=== PATIENT | male | born 1955 | race Caucasian/White ===

== ENCOUNTER 2017-08-15 05:08 | Day surgery (SDC) | payer BC ==
[2017-08-15] MEDS ORDERED: SODIUM CHLORIDE IVPB ONE (09:00)
[2017-08-15] MEDS ORDERED: DESMOPRESSIN ACETATE IVPB ONE (09:00)
[2017-08-15] MEDS ORDERED: PROPOFOL 20 ML ONE ×2 (11:44→12:07)
[2017-08-15] MEDS ORDERED: MIDAZOLAM HCL 2 MG/2 ML SINGLE DOSE VIAL ONE (11:44)
[2017-08-15] MEDS ORDERED: ROCURONIUM BROMIDE 50 MG/5 ML VIAL ONE (11:50)
[2017-08-15] MEDS ORDERED: ceFAZolin SODIUM 1 GM VIAL IVPB ONE (12:20)
[2017-08-15] MEDS ORDERED: ceFAZolin SODIUM 1 GM VIAL ONE (12:23)
[2017-08-15] MEDS ORDERED: DEXAMETHASONE SOD PHOSPHATE 4 MG/1 ML VIAL ONE (12:23)
[2017-08-15] MEDS ORDERED: GLYCOPYRROLATE 0.2 MG/1 ML VIAL ONE (12:54)
[2017-08-15] MEDS ORDERED: NEOSTIGMINE METHYLSULFATE 0.5 MG/ML - 10 ML MDV ONE (12:54)
[2017-08-15] MEDS ORDERED: ONDANSETRON 4 MG/2 ML VIAL IVPB PRN (13:14)
[2017-08-15] MEDS ORDERED: oxyCODONE HCL 5 MG TABLET PO PRN ×3 (13:14→15:18)
[2017-08-15] MEDS: KETOROLAC TROMETHAMINE 30 MG/1 ML VIAL IVPUSH ONE ×2 (15:20→16:48)
[2017-08-15] MEDS ORDERED: KETOROLAC TROMETHAMINE 30 MG/1 ML VIAL ONE (15:20)
[2017-08-15] MEDS: LACTATED RINGERS SOLUTION 1,000 ML IV SCH (16:57)
[2017-08-16] MEDS: LACTATED RINGERS SOLUTION 1,000 ML IV SCH (00:33)
--- NOTE | 2017-08-16 09:40 | OP ---
DATE OF OPERATION: DATE OF DICTATION: Laparoscopic ventral hernia repair. PREOPERATIVE DIAGNOSIS: Ventral hernia. POSTOPERATIVE DIAGNOSIS: Ventral hernia. SURGEON: Madi Roger MD PRECINCT I [employer]GEANT SURGEON: Ehsan Richard MD ANESTHESIA: General endotracheal anesthesia. IMPLANTS: Implanted a 4.5-inch, circular Ventralight ST mesh with the Echo Positioning System. OPERATIVE NOTE: The patient was brought to the operating room. After confirming, name, date of , and medical record number, he was given DDAVP in the preop holding area. 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 He was then induced and intubated by the anesthesiologist. He received appropriate perioperative antibiotics. He had SCDs for DVT prophylaxis. He was then prepped and draped in the usual sterile fashion. A timeout was then performed. I marked off his left subcostal margin and then made a transverse incision in his left upper quadrant and bluntly dissected down to his anterior sheath. I cauterized through the anterior sheath in a transverse fashion and then I used a Geno clamp to spread the muscle. Then, I grabbed his posterior sheath with Geno clamps and lifted it anteriorly and used Metzenbaum scissors to cut and enter the abdomen sharply. I placed my finger inside the wound, performed a finger sweep and ensured no adhesions. Then, I placed a 12-mm balloon, Fortunato-type trocar into the abdomen and inflated to a pressure of 15 mmHg. I could clearly see the small ventral hernia and at this point 5-mm trocars in the left fili-abdomen were placed. I then placed the mesh through the 12-mm port and then I made a small incision near the umbilicus and I pulled it out. Then, I inflated the balloon on the mesh to hold it up. Then, I used a tacker to tack the mesh. Once the outside was tacked, I then cut the purple cord for the balloon and then pulled out the balloon through the 12 port. Then, I continued to tack the mesh to the anterior abdominal wall, taking care not to leave any gaps greater than a centimeter around the periphery. There was perfect hemostasis and then I desufflated the abdomen. Then, closed the incisions with subcutaneous 4-0 Monocryl. Dermabond was then applied to close the wounds, including the wound that I placed the Ollie-Carol through. All counts were correct. MADI ROGER M.D. [id number]
[2017-08-16] MEDS: ACETAMINOPHEN 325 MG TABLET (FP) PO ONE ×2 (10:18→14:08)
[2017-08-16] MEDS: oxyCODONE HCL 5 MG TABLET PO PRN ×2 (10:19→14:09)
--- NOTE | 2017-08-16 10:20 | PN ---
Progress Note (short form) - Note Progress Note: Pt seen and examined in bed. s/p laparoscopic umbilical hernia repair yesterday. had a little nausea this am, better after zofran. has not had pain meds yet. having some pain across abdomen. has not yet been oob/ambulating. has voided in urinal. Vital Signs Period Temp Pulse Resp BP Sys/Guevara Pulse Ox Last 24 Hr 97.4 F-98.7 F 60-74 10-20 112-153/64-78 93-98 PE: abdomen soft, obese, incisions with dermabond c/d/i, well-approximated tender mildly diffusely and over incisional areas except umbilicus A/P: s/p laparoscopic umbilical hernia repair von Willebrand's disease - no evidence of bleeding incisional tenderness and pain appropriate to take pain med now OOB/ambulate ok for d/c home after lunch to f/u in clinic ~2 weeks
[2017-08-16 11:08] VITALS: BP 126/77; PULSE 77; TEMP 98.2
[2017-08-16 11:32] LABS: MCH 29.4 pg (25.7-33.7); MCHC 33.7 g/dl (32.0-35.9); MEAN CELL VOLUME 87.1 fl (80-96); MEAN PLT VOLUME 9.1 fl (7.5-11.1); PLATELET COUNT 247 K/MM3 (134-434); RDW 13.2 % (11.9-15.9); WHITE BLOOD COUNT 15.5 K/mm3 (4.0-10.0)
== END 2017-08-16 14:17 | disposition home or self-care (01) ==
LOC: JASUSAT 05:08 → JASU-SURG 05:08 → J8W 15:51 → JASUSAT 08-16 14:17
PROVIDERS: ATTEND Surgery
PROC: 0WUF4JZ Supplement Abdominal Wall with Synthetic Substitute, Percutaneous Endoscopic Approach (ICD-10-PCS; principal; 2017-08-15 10:30)
DX: K43.9 Ventral hernia without obstruction or gangrene (principal)
CPT/HCPCS: 36415; 85027; 94760

== ENCOUNTER 2017-11-09 15:25 | Emergency (ER) | payer OTHER, BC ==
[2017-11-09 15:37] VITALS: BP 140/96; PULSE 80; TEMP 98.4; BMI 30.8
[2017-11-09] MEDS ORDERED: ALBUTEROL SO4 2.5/IPRATROPIUM 0.5 INH SOL 3 ML VIAL.NEB. NEB ONE ×2 (16:25→16:31)
--- NOTE | 2017-11-09 16:25 | PDOC ---
History of Present Illness - General Chief Complaint: Blood/Body Fluid Exposure SJR Stated Complaint: EXPOSURE TO CHEMICALS Time Seen by Provider: 11/09/17 16:15 - History of Present Illness Initial Comments: 11/09/17 16:35 The patient is a 62 year old male with a history of Von Willibrands who presents for evaluation following exposure to chlorine gas at work. 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 He reports some burning sensation in he nostrils and throat as well as a tightness in his chest prompting his presentation to the ED today. He denies chest pain, difficulty breathing, headache, fevers, chills, abdominal pain, nausea, vomiting, or changes with urination or bowel movements. Past History - Past Medical History Allergies/Adverse Reactions: Allergies Allergy/AdvReac Type Severity Reaction Status Date / Time No Known Allergies Allergy Verified 11/09/17 15:30 Home Medications: Ambulatory Orders Amlodipine Besylate [Norvasc -] 10 mg PO DAILY 06/18/15 Methylcellulose (with Sugar) [Citrucel Clear-Mix Powder] 1 scoop PO DAILY Oxycodone HCl/Acetaminophen [Percocet 5-325 mg Tablet] 1 tab PO Q4H #30 tablet MDD 6 08/15/17 Anemia: No COPD: No DVT: No GI Disorders: Yes (DIVERTICULOSIS, HEMORRHOIDS) HTN: Yes Liver Disease: No - Surgical History Abdominal Surgery: Yes (UMBILICAL HERNIA REPAIR) Orthopedic Surgery: Yes (Right Foot) - Immunization History Immunization Up to Date: Yes - Suicide/Smoking/Psychosocial Hx Smoking Status: No Smoking History: Never smoked Have you smoked in the past 12 months: No Number of Cigarettes Smoked Daily: 0 Information on smoking cessation initiated: No Hx Alcohol Use: No Drug/Substance Use Hx: No Substance Use Type: None Hx Substance Use Treatment: No Review of Systems - Review of Systems Comments:: 11/09/17 16:38 Constitutional: No fevers, chills, fatigue, malaise HEENT: No Rhinorrhea, nasal congestion, visual changes Cardiovascular: Chest tightness. No chest pain, syncope, palpitations, lightheadedness Respiratory: No Cough, SOB, Hemoptysis, Gastrointestinal: No Abdominal pain, Nausea, Vomiting, Constipation, Diarrhea, Melena Genitourinary: No Dysuria, Frequency, Urgency, Hesitancy, Hematuria, Flank pain Musculoskeletal: No Myalgia, arthralgia Skin: No rashes, bruising, pallor Neurologic: No Headache, Dizziness, Numbness, Weakness, or Tingling Psychiatric: No Hallucinations. No SI or HI *Physical Exam - Vital Signs Last Vital Signs Temp Pulse Resp BP Pulse Ox 98.4 F 80 16 140/96 97 11/09/17 15:31 11/09/17 15:31 11/09/17 15:31 11/09/17 15:31 11/09/17 15:31 - Physical Exam Comments: 11/09/17 16:39 General Appearance: Nourished. No Apparent Distress HEENT: EOMI, HEATHER. Clear nares with no signs of injury. No Pharyngeal Erythema , Tonsillar Exudate, Tonsillar Erythema Neck: No Cervical Lymphadenopathy Respiratory/Chest: Lungs Clear, Normal Breath Sounds. No Crackles, Rales, Rhonchi, Wheezing Cardiovascular: Regular Rhythm, Regular Rate. No JVD, Murmur, Gallops, Rubs Gastrointestinal/Abdominal: Normal Bowel Sounds, Soft. No Guarding, Rebound, Tenderness Musculoskeletal: No CVA Tenderness Extremity: Normal Capillary Refill Integumentary: Normal Color, Dry, Warm Neurologic: Fully Oriented, Alert, Normal Mood/Affect, Normal Response, Medical Decision Making - Medical Decision Making 11/09/17 16:39 The patient is a 62 year old male with a history of Von Willibrands who presents for evaluation following exposure to chlorine gas at work. Given the patient's history and physical exam, it is likely the patient has experienced some airway irritation due to the chlorine gas although he does not appear to be in respiratory distress. We will obtain a chest plain film to evaluate further and treat the patient with a duoneb. We will continue to monitor and reassess. 11/09/17 17:58 Chest plain film is negative as preliminarily read by ER physician. We are comfortable discharging the patient home at this time with primary care provider follow up. We discussed the results and the plan with the patient who voiced understanding and is agreeable with the plan. *DC/Admit/Observation/Transfer Diagnosis at time of Disposition: Chlorine gas exposure - Discharge Dispostion Disposition: HOME Condition at time of disposition: Improved Admit: No - Referrals Referrals: Brittanie Peralta MD [Primary Care Provider] - - Patient Instructions Printed Discharge Instructions: DI for Inhalation Injury Additional Instructions: Please return to the ER if you experience concerning or worsening symptoms including difficulty breathing or worsening SOB. You were seen in the ER for exposure to chlorine gas. Your xrays were normal here in the ER. Please call to schedule a follow up appointment with your primary care provider to discuss your ER visit within 1 week. - Post Discharge Activity Forms/Work/School Notes: Back to Work
--- NOTE | 2017-11-09 16:38 | PDOC ---
Attending Attestation - Resident Resident Name: Raul Shaver - ED Attending Attestation I have performed the following: I have examined & evaluated the patient, The case was reviewed & discussed with the resident, I agree w/resident's findings & plan, Exceptions are as noted - HPI HPI: 11/09/17 16:35 62 yo exposed to chemical irritant (inhalation injury), feels fine just wanted checked out - Physicial Exam PE: 11/09/17 16:36 VSS/NAD - Medical Decision Making 11/09/17 16:37 I, Dr. Александр Mancilla, attest that this document has been prepared under my direction and personally reviewed by me in its entirety. I further attest, that it accurately reflects all work, treatment, procedures and medical decision -making performed by me.
== END 2017-11-09 18:50 | disposition home or self-care (01) ==
LOC: JERFT 15:25 → JER 15:25
PROC: 3E0F7GC Introduction of Other Therapeutic Substance into Respiratory Tract, Via Natural or Artificial Opening (ICD-10-PCS; principal; 2017-11-09)
DX: Z77.098 Contact with and (suspected) exposure to other hazardous, chiefly nonmedicinal, chemicals (principal); Z57.5 Occupational exposure to toxic agents in other industries; X58.XXXA Exposure to other specified factors, initial encounter; Y93.89 Activity, other specified; Y92.69 Other specified industrial and construction area as the place of occurrence of the external cause; Y99.0 Civilian activity done for income or pay
CPT/HCPCS: 71020-TC; 99281-25

== ENCOUNTER 2022-04-17 18:41 | Observation (INO) | payer OTHER, BC ==
[2022-04-17 18:45] VITALS: BMI 30.9
[2022-04-17] MEDS ORDERED: ASPIRIN 81 MG CHEWABLE TABLETS ONE (19:18)
[2022-04-17 19:42] LABS: BASO % 0.6 % (0-2.0); EOS % 0.3 % (0-4.5); HEMATOCRIT 41.9 % (35.4-49); HEMOGLOBIN 14.7 GM/dL (11.7-16.9); LYMPH % 9.3 % (8-40); MCH 30.7 pg (25.7-33.7); MCHC 35.1 g/dl (32.0-35.9); MEAN CELL VOLUME 87.6 fl (80-96); MEAN PLT VOLUME 9.1 fl (7.5-11.1); MONO % 4.2 % (3.8-10.2); NEUT % 85.6 % (42.8-82.8); PLATELET COUNT 228 10^3/uL (134-434); RBC 4.78 M/mm3 (4.00-5.60); WHITE BLOOD COUNT 9.6 K/mm3 (4.0-10.0)
[2022-04-17 19:53] LABS: INR 1.1 (0.83-1.09); PROTHROMBIN TIME (PATIENT) 12.7 SEC (9.7-13.0)
[2022-04-17 19:56] LABS: ACTIVATED PTT 32.7 SECONDS (25.2-36.5)
[2022-04-17 20:05] LABS: BLOOD UREA NITROGEN 15.2 mg/dL (7-18)
[2022-04-17 20:08] LABS: CREATININE 0.8 mg/dL (0.55-1.3)
[2022-04-17 20:09] LABS: BILIRUBIN,TOTAL 0.8 mg/dL (0.2-1); TOT PROT 7.1 g/dl (6.4-8.2)
[2022-04-17] MEDS ORDERED: ASPIRIN 81 MG CHEWABLE TABLETS PO SCH (20:16)
[2022-04-17] MEDS ORDERED: ASPIRIN 81 MG CHEWABLE TABLETS PO ONE (20:28)
[2022-04-17] MEDS ORDERED: FAMOTIDINE 20 MG/50 ML IVPB 20 MG/50 ML MG IVPB ONE ×2 (21:36→21:55)
[2022-04-17] MEDS ORDERED: ACETAMINOPHEN 1000 MG/100 ML BAG IVPB ONE (21:37)
[2022-04-17] MEDS ORDERED: ACETAMINOPHEN INJECTION 100 ML IVPB ONE (21:55)
[2022-04-17] MEDS ORDERED: ACETAMINOPHEN 325 MG TABLET (FP) PO PRN (22:43)
[2022-04-18 08:35] LABS: BASO % 0.3 % (0-2.0); EOS % 0.2 % (0-4.5); HEMATOCRIT 40.7 % (35.4-49); HEMOGLOBIN 14.1 GM/dL (11.7-16.9); LYMPH % 10.7 % (8-40); MCH 30.6 pg (25.7-33.7); MCHC 34.8 g/dl (32.0-35.9); MEAN CELL VOLUME 87.9 fl (80-96); MEAN PLT VOLUME 9.3 fl (7.5-11.1); MONO % 8.3 % (3.8-10.2); NEUT % 80.5 % (42.8-82.8); PLATELET COUNT 232 10^3/uL (134-434); RBC 4.63 M/mm3 (4.00-5.60); RDW 13.2 % (11.9-15.9); WHITE BLOOD COUNT 13.1 K/mm3 (4.0-10.0)
[2022-04-18 08:49] LABS: BLOOD UREA NITROGEN 11.9 mg/dL (7-18); CALCIUM 8.7 mg/dL (8.5-10.1); MAGNESIUM 2.2 mg/dL (1.8-2.4)
[2022-04-18 08:53] LABS: CREATININE 0.7 mg/dL (0.55-1.3)
[2022-04-18] MEDS ORDERED: ENOXAPARIN NA (PORCINE) 40 MG/0.4 ML DISP.SYRIN SQ SCH ×2 (10:00→18:00)
[2022-04-18] MEDS ORDERED: ASPIRIN 81 MG CHEWABLE TABLETS PO SCH (10:00)
[2022-04-18] MEDS ORDERED: ASPIRIN COATED 81 MG TABLET.EC ONE (12:00)
[2022-04-18] MEDS: ASPIRIN COATED 81 MG TABLET.EC PO SCH (12:03)
[2022-04-19 07:06] LABS: BASO % 0.4 % (0-2.0); EOS % 1.5 % (0-4.5); HEMATOCRIT 44.9 % (35.4-49); HEMOGLOBIN 15.4 GM/dL (11.7-16.9); MCH 30.4 pg (25.7-33.7); MCHC 34.3 g/dl (32.0-35.9); MEAN CELL VOLUME 88.9 fl (80-96); MEAN PLT VOLUME 9.5 fl (7.5-11.1); MONO % 7.8 % (3.8-10.2); NEUT % 71.3 % (42.8-82.8); PLATELET COUNT 223 10^3/uL (134-434); RBC 5.05 M/mm3 (4.00-5.60); RDW 13.3 % (11.9-15.9)
[2022-04-19] MEDS ORDERED: ASPIRIN COATED 81 MG TABLET.EC ONE (07:26)
[2022-04-19] MEDS ORDERED: amLODIPine BESYLATE 10 MG TABLET (FP) ONE (07:26)
[2022-04-19 07:34] LABS: CHOLESTEROL 145 mg/dL (50-200); TRIGLYCERIDES 83 mg/dL (0-150)
[2022-04-19 07:35] LABS: LDL CHOLESTEROL (ONLY SJRH) 91 mg/dL (5-100)
[2022-04-19 07:37] LABS: HDL CHOLESTEROL 54 mg/dL (40-60)
[2022-04-19] MEDS: ASPIRIN COATED 81 MG TABLET.EC PO SCH (08:00)
[2022-04-19] MEDS ORDERED: REGADENOSON 0.4 MG/5 ML PRE-FILLED SYRINGE IVPUSH ONE ×2 (09:36→10:00)
[2022-04-19] MEDS ORDERED: amLODIPine BESYLATE 10 MG TABLET (FP) PO SCH (10:00)
[2022-04-19 12:52] VITALS: TEMP 98.4
[2022-04-19 16:18] VITALS: BP 139/85; PULSE 80
== END 2022-04-19 17:09 | disposition home or self-care (01) ==
LOC: JER 18:41 → JERBED 19:18
PROVIDERS: ADMIT Hospitalist; ATTEND Internal Medicine
PROC: 3E033NZ Introduction of Analgesics, Hypnotics, Sedatives into Peripheral Vein, Percutaneous Approach (ICD-10-PCS; principal; 2022-04-17)
PROC: 3E033GC Introduction of Other Therapeutic Substance into Peripheral Vein, Percutaneous Approach (ICD-10-PCS; 2022-04-17)
DX: R07.89 Other chest pain (principal); I10 Essential (primary) hypertension; D68.0 Von Willebrand disease; E66.9 Obesity, unspecified; Z68.30 Body mass index [BMI] 30.0-30.9, adult; K57.92 Diverticulitis of intestine, part unspecified, without perforation or abscess without bleeding; K64.9 Unspecified hemorrhoids
CPT/HCPCS: 0241U-QW; 36415; 71046-TC-FY; 78452-TC; 80048; 80053; 80061; 83690; 83735; 84484; 85025; 85610; 85730; 93005; 93010; 93017; 96365; 96375; 99285-25; A9502; G0378; J2785

== ENCOUNTER 2024-02-28 04:35 | Day surgery (SDC) | payer OTHER, BC ==
[2024-02-27 10:51] VITALS: BMI 31.3
[2024-02-28 11:17] VITALS: TEMP 97.6
[2024-02-28 11:50] VITALS: BP 124/56; PULSE 60; RESP 18
== END 2024-02-28 12:12 | disposition home or self-care (01) ==
LOC: JASU-ENDO 04:35
PROVIDERS: ATTEND Internal Medicine Gastroenterology
PROC: 0DBN8ZX Excision of Sigmoid Colon, Via Natural or Artificial Opening Endoscopic, Diagnostic (ICD-10-PCS; 2024-02-28)
PROC: 0DBN8ZX Excision of Sigmoid Colon, Via Natural or Artificial Opening Endoscopic, Diagnostic (ICD-10-PCS; principal; 2024-02-28 10:30)
DX: Z12.11 Encounter for screening for malignant neoplasm of colon (principal); D12.5 Benign neoplasm of sigmoid colon; K57.30 Diverticulosis of large intestine without perforation or abscess without bleeding; I10 Essential (primary) hypertension
CPT/HCPCS: 88305-TC; J2597